=== PATIENT | female | born 1935 | race Caucasian/White ===

== ENCOUNTER 2016-10-21 14:07 | Inpatient (IN) | payer OTHER ==
[~2016-10-21] VITALS: Ht 165.1 cm; Wt 74.8 kg
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
[2016-10-21] MEDS ORDERED: LISINOPRIL10 M1 PO (15:17)
[2016-10-21] MEDS ORDERED: OXYBUTYNIN CHLOR5 M2 PO (15:17)
[2016-10-21] MEDS ORDERED: LORAZEPAM0.5 M1 PO (15:18)
[2016-10-21] MEDS ORDERED: VICODIN 5-3001 EACH PO (15:18)
[2016-10-21 15:50] LABS: ABSOLUTE BASOPHIL COUNT 0.1 /CUMM (0.0-0.2); ABSOLUTE EOSINOPHIL COUNT 0 /CUMM (0.0-0.7); ABSOLUTE GRANULOCYTE CT 16.9 /CUMM (1.4-6.5); ABSOLUTE LYMPH COUNT 0.9 /CUMM (1.2-3.4); ABSOLUTE MONOCYTE COUNT 1.1 /CUMM (0.10-0.60); BASOPHIL % 0.4 % (0.0-2.0); EOSINOPHIL % 0.1 % (0-5); HEMATOCRIT 42.7 % (37-47); MEAN CORPUSCULAR HGB 30.4 PG (27.0-31.0); MEAN CORPUSCULAR HGB CONC 33.1 G/DL (33.0-37.0); MEAN CORPUSCULAR VOLUME 91.8 FL (81.0-99.0); MEAN PLATELET VOLUME 9.6 FL (7.4-10.4); PLATELET COUNT 234 /CUMM (130-400); RBC DISTRIBUTION WIDTH 14.7 % (11.5-14.5); RED BLOOD CELL CT 4.65 /CUMM (4.20-5.40); WHITE BLOOD CELL COUNT 19.1 /CUMM (4.8-10.8)
--- NOTE | 2016-10-21 15:53 | RADIOLOGY REPORT ---
EXAMINATION: XR HIP, RIGHT CLINICAL INFORMATION: Right hip pain after fall. Evaluate for fracture. COMPARISON: None TECHNIQUE: Pelvis, AP view Right hip, 2 views FINDINGS: There are moderately displaced, comminuted fractures of the right superior and inferior pubic rami. Otherwise, the pelvic bones are intact. Bones have normal alignment at the pubic symphysis, hips and sacroiliac joints. The articular cartilage space of each hip is maintained. No evidence of femoral fracture or acetabular injury. IMPRESSION: Acute, moderately displaced fractures of the right pubic rami.
[2016-10-21 15:58] LABS: GRANULOCYTE % 88.7 % (42.2-75.2)
--- NOTE | 2016-10-21 17:16 | History & Physical ---
SAM OROZCO,[facility] 10/21/16 1716: General Information and HPI MD Statement: I have seen and personally examined RAN CASSIDY and documented this H&P. The patient is a 80 year old F who presented with a patient stated chief complaint of [Fall with severe left hip pain]. Source of Information: patient Exam Limitations: no limitations History of Present Illness: Ms. cassidy is 80 year old female with past medical history of hypertension, left tibia plate fracture status post internal fixation 4 years ago, right distal tibial fracture status post external fixation 17 years ago both incidents after falls while skiing, chronic back pain. [place] when she fell down on her right hip, she immediately noticed severe pain over her right hip, patient went to home and started to have lightheadedness because of the severe pain but never lost consciousness. She denied any chest pain, palpitation, diaphoresis, nausea or vomiting, headache, diaphoresis, shortness of breath. When the patient came to the ED and after checking in, she started to feel palpitation and on EKG atrial fibrillation was recorded. Patient denied having any similar episode of palpitation before. Denied any recent history of flulike symptoms. Patient denied abdominal pain, nausea vomiting, change in the bowel habits, urinary symptoms, fever or chills. 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 self Primary Language: Moroccan Smoking Status: Never Smoked ETOH Use: denies use Illicit Drug Use: denies illicit drug use Review of Systems Review of Systems Constitutional: Reports: see HPI. Exam & Diagnostic Data Last 24 Hrs of Vital Signs/I&O Vital Signs Date Time Temp Pulse Resp B/P Pulse O2 O2 Flow FiO2 Ox Delivery Rate 10/21 2025 98.1 81 18 162/78 93 10/21 2001 98.0 82 18 145/69 96 10/21 1905 98.4 85 20 154/67 95 Room Air 10/21 1751 97.5 93 20 188/75 97 Room Air 10/21 1500 Room Air Room Air 10/21 1427 96.3 153 18 177/87 96 Room Air Intake & Output 10/21 1600 10/21 0800 10/21 0000 Intake Total Output Total Balance Patient 74.843 kg Weight Physical Exam General Appearance Alert, Oriented X3, Cooperative, No Acute Distress Skin No Rashes, No Breakdown, No Significant Lesion HEENT Atraumatic, PERRLA, EOMI, Mucous Membr. moist/pink Neck Supple Cardiovascular Regular Rate, Normal S1, Normal S2, No Murmurs Lungs Clear to Auscultation, Normal Air Movement Abdomen Normal Bowel Sounds, Soft, No Tenderness Neurological Normal Speech, Strength at 5/5 X4 Ext, Normal Tone, Sensation Intact, Cranial Nerves 3-12 NL, Reflexes 2+ Extremities No Clubbing, No Cyanosis, No Edema, Normal Pulses Assessment/Plan Assessment: Ms. cassidy is 80 year old female with chief complaint of right hip pain after fall this morning. She has past medical history of hypertension, left tibia plate fracture status post internal fixation 4 years ago, right distal tibial fracture status post external fixation 17 years ago both incidents after falls while skiing, chronic back pain. On admission Vital signs Temperature 98.1, pulse 81, respiration 18 with saturation 93% on room air, blood pressure 162/78 Labs WBC 19.1, H&H 14.1/42.7, platelet 234, sodium 138, potassium 3.8, chloride 101, bicarbonate 27, BUN 17, creatinine 0.8, troponin less than 0.01, LFT within normal, coagulation profile is within normal Right hip x-ray FINDINGS: There are moderately displaced, comminuted fractures of the right superior and inferior pubic rami. Otherwise, the pelvic bones are intact. Bones have normal alignment at the pubic symphysis, hips and sacroiliac joints. The articular cartilage space of each hip is maintained. No evidence of femoral fracture or acetabular injury. IMPRESSION: Acute, moderately displaced fractures of the right pubic rami. Problem list #Moderate displaced comminuted fracture of right superior and inferior pubic rami #New onset of paroxysmal atrial fibrillation #Hypertension #Moderate displaced comminuted fracture of right superior and inferior pubic rami -Orthopedic evaluation -Patient's last meal was at 1:30 PM -Pain improved with pain medication -Distal pulsation is palpable, no skin discoloration, no numbness, motor 5 out of 5 -Patient multiple falls while skiing with multiple fracture -History of osteopenia -Continue vitamin D supplementation 2000 units daily -Calcium is within normal 9.5 -Obtain vitamin D level -Obtain PTH, TSH, free T4 level #New onset of paroxysmal atrial fibrillation -Patient had been episode of A. fib when presented to the ED with heart rate 146 -Initial ED EKG: ATRIAL FIBRILLATION 146 [address] WITH [address]IFIC st-t WAVE CHANGES. -Repeat EKG: normal sinus rhythm ( 150 BPM, VARIABLE), atrial fibrillation -Converted to sinus rhythm with rate of 80s -Start aspirin 80 mg daiy -Start Lovenox for DVT anticoagulation #Hypertension -Initial troponin is negative -Follow up troponin and EKG -Echocardiogram -Start aspirin 81 mg daily -Continue lisinopril 10 mg daily -Obtain lipid profile DVT prophylaxis Lovenox Diet regular Code full Consultation cardiology, orthopedic surgery As Ranked By This Provider Problem List: 1. Pelvic fracture 2. Afib Core Measures/Miscellaneous Acute Coronary Syndrome ACS Diagnosis: No Cerebrovascular Accident CVA/TIA Diagnosis: No Congestive Heart Failure CHF Diagnosis: No Venous Thromboembolism VTE Risk Factors: Age > 40 VTE Prophylaxis Ordered Inpt: Pharm- Lovenox No Mech VTE prophylaxis d/t: No contraindications No VTE Pharm Prophylaxis d/t: No contraindications VTE Diagnosis: No VTE Type: NONE VTE Confirmed by (Test): NONE Severe Sepsis Severe Sepsis Present: No Septic Shock Septic Shock Present: No Miscellaneous Documentation Attending Case Discussed With: TINO OROZCO,CLAUS Carrillo Primary Care Physician: ARNIE PARRA MD Patient sees these Specialists Primary care physician Level of Patient Care: Telemetry ANJELICA QUINN 10/21/16 1736: Resident Review Statement Resident Statement: examined this patient, discussed with internal grinder, agreed with internal grinder, discussed with family, reviewed EMR data (avail) Other Findings: is an 80 yo athletic 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 Patient was [place] today [place] when she slipped and fell and hit her buttock on the snow result in very severe pain about 20/10, she denies any other trauma, denies loss of consciousness, she had a friend help who drove her to home, she couldn't weight-bear without help. At home she started to feel lightheaded, with persistent progressively worsening pain, she decided to come to emergency department for more evaluation, at emergency department she started to feel heart tracing without chest pain. She denies previous history of heart racing/palpitations. She denies any chronic CHADSVASC SCORE IS 4 Assessment: 1-Displaced fractures of the right pubic rami 2-New onset A.fib currently switched to SR 3-Hx. of HTN Plan: Will admitt the patient to telemetry floor Case was discussed with Alfred Daugherty MD, for now there is not too much to be done, he is cannot look at the patient tomorrow, there is no need to keep the patient nothing by mouth, PT evaluation will be appropriate tomorrow to see how much patient can ambulate Case was also discussed with Dr. Whiting, who recommend to obtain echocardiogram and check TSH and free T4 will obtain cardiology consult Will continue home meds Pain management with Morphine Will trend troponin and EKG Will order PTT, INR Will keep the patient NPO for now pending Ortho. evaluation dvt prophylaxis SC lovenox Full code ELAINA OROZCO, [facility] 10/21/16 1850: Attending MD Review Statement Attending Statement Attending MD Statement: examined this patient, discuss w/resident/PA/BAGEL MAKER, agreed w/resident/PA/BAGEL MAKER Attending Assessment/Plan: 80 yo pretty active F with h/o HTN, overactive bladder, spinal stenosis, osteopenia is here for evaluation of right groin and buttock pain after sustaining a fall to the right hip while skiing today. She was helped by the skidder and was driven back home by her friend. However, she had immense pain with inability to bear weight to right leg and hence came to the ER. She reports lightheadedness in the setting of severe pain. While in the ER, she developed sudden onset palpitations, EKG done showed Afib with HR in 140-150's. She denies chest pain, nausea, diaphoresis or dyspnea. She does not have a h/o atrial fibrillation or flutter. She has had an Echo few years back as suggested by the PA at her PCP's office for a 'murmur'. But she does not know the results and did not have to see a drafter (cad) electronic. No h/o [place]. She has sustained multiple injuries (including tibial fracture, hip bursitis, toe nail injury, shoulder OA) as she plays tennis and goes skiing often. VSS. Exam: AAO, in a jovial mood, writhes in pain only on movement. Chest b/l clear, Heart S1S2 regular, systolic murmur+, Right groin tenderness+, no obvious bruise. LE no edema, peripheral pulses well felt. Labs: WBC 19.1, INR 1.02, glucose 127, trop neg. Hip Xray shows acute, moderately displaced fractures of the right pubic rami. EKG (2.40 pm): Afib with RVR, (3.20 pm) Sinus rhythm. 1. Mechanical fall with resultant pubic rami fracture. Fall precautions, check vit D and B12 levels. Pain management with Percocet and IV morphine as needed. Ortho consult. PT eval and eventual placement. Please give bedside incentive spirometry to prevent atelectasis. 2. Paroxysmal Afib. Patient converted to SR while in the ER, episode last for < 60 minutes. Monitor on Tele for arrhythmias, serial EKG and troponin to rule out ACS, obtain Echo, check TSH, free T4 and magnesium levels. Keep K > 4.0 amd Mag > 2.0. Obtain Cardio consult. Patient's [id number] score is 4 (HTN 1, female for now. 3. Leukocytosis likely reactive. Gentle hydration, monitor CBC. If persistently elevated, will consider UA and CXR. No focal symptoms as of now. 4. HTN. Continue lisinopril 10 BID. 5. Overactive bladder. Continue oxybutinin. 6. Impaired random glucose. Check HbA1c. DVT ppx Lovenox. Full code.
[2016-10-21 18:28] LABS: PT 10.7 SEC (9.4-12.5); PTT 28 SEC (25-37)
--- NOTE | 2016-10-21 19:30 | Admission Certification ---
Admission Certification Certification Statement - As attending physician, I certify that at the time of - admission, based on clinical presentation, severity of - symptoms, need for further diagnostic testing and - therapeutic interventions, and risk of adverse outcomes - without in-hospital treatment, in my clinical assessment, - this patient requires an acute hospital stay for a minimum - of two nights or longer. I have also considered psychsocial - factors such as support system, advanced age, financial - issues, cognitive issues, and failed out-patient treatments, - past re-admission history, safety of patient, and lack of - compliance as applicable. Specific rationale supporting this admission is: Mechanical fall resulting in pubic rami fracture. Paroxysmal atrial fibrillation.
[2016-10-21 20:26] VITALS: BP 162/78
[2016-10-22 00:06] VITALS: BP 120/50
--- NOTE | 2016-10-22 07:33 | PN- Housestaff ---
SAM OROZCO,[facility] 10/22/16 0733: Subjective Follow-up For: Pubic ramus fracture status post mechanical fall. Newly diagnosed paroxysmal atrial fibrillation Anemia. Hypertension Tele-Events Since Last Visit: Sinus rhythm, heart rate 75-84 No overnight events Subjective: Patient was seen and examined this morning, she denied any pain while she is resting on the bed, the pain may go up to 2 out of 10 when she moves around although she hasn't been out of bed since admission, she used the bedban for which she needed to move a little bit. She denied any chest pain, palpitation, shortness of breath, dizziness or lightheadedness, diaphoresis, headache, visual disturbances, weakness or numbness. She denied abdominal pain, nausea or vomiting, had bowel movement yesterday. No urinary symptoms. Reported chronic back pain 5/10 from prolonged sitting. Vital signs blood pressure 158/60, pulse 87 Review of Systems Constitutional: Reports: see HPI. Objective Last 24 Hrs of Vital Signs/I&O Vital Signs Date Time Temp Pulse Resp B/P Pulse O2 O2 Flow FiO2 Ox Delivery Rate 10/22 0943 87 158/60 10/22 08 98.0 87 20 158/60 95 Room Air 10/22 0006 98.2 78 20 120/50 95 Room Air 10/21 2153 Room Air Room Air 10/21 2123 82 162/80 10/21 202 98.1 81 18 162/78 93 / 2002 98.0 82 18 145/69 96 10/21 1905 98.4 85 20 154/67 95 Room Air 10/21 1751 97.5 93 20 188/75 97 Room Air 10/21 1500 Room Air Room Air 10/21 1427 96.3 153 18 177/87 96 Room Air Intake & Output 10/22 1600 10/22 0800 10/22 0000 Intake Total 525 420 Output Total 550 350 Balance -25 70 Intake, IV 525 Intake, Oral 0 420 Output, Urine 550 350 Patient 74.843 kg Weight Physical Exam General Appearance: Alert, Oriented X3, Cooperative, No Acute Distress Skin: small faint 5x5 cm bruse over the right hip area, no bruse over the bottoks HEENT: Atraumatic, PERRLA, EOMI, Mucous Membr. moist/pink Neck: Supple Cardiovascular: Regular Rate, Normal S1, Normal S2, No Murmurs Lungs: Clear to Auscultation, Normal Air Movement Abdomen: Normal Bowel Sounds, Soft, No Tenderness Neurological: Normal Speech, Strength at 5/5 X4 Ext, Normal Tone, Sensation Intact, Cranial Nerves 3-12 NL, Reflexes 2+ Extremities: No Clubbing, No Cyanosis, No Edema, Normal Pulses Vascular: Normal Pulses Assessment/Plan Assessment: Ms. mattson is 80 year old female with chief complaint of right hip pain after fall this morning. She has past medical history of hypertension, left tibia plate fracture status post internal fixation 4 years ago, right distal tibial fracture status post external fixation 17 years ago both incidents after falls while skiing, chronic back pain. Right hip x-ray FINDINGS: There are moderately displaced, comminuted fractures of the right superior and inferior pubic rami. Otherwise, the pelvic bones are intact. Bones have normal alignment at the pubic symphysis, hips and sacroiliac joints. The articular cartilage space of each hip is maintained. No evidence of femoral fracture or acetabular injury. IMPRESSION: Acute, moderately displaced fractures of the right pubic rami. Problem list #Moderate displaced comminuted fracture of right superior and inferior pubic rami #New onset of paroxysmal atrial fibrillation #Hypertension #Anemia #Moderate displaced comminuted fracture of right superior and inferior pubic rami -Orthopedic was obtained, verbally they don't think patient need any intervention -Pain is well controlled -Severe pain pathway, Tylanolo 50 mg every 6 when necessary, Percocet 1 tablet every 6 when necessary, morphine IV 2 mg every 4 when necessary -Aggressive bowel regimen -Continue vitamin D supplementation 2000 units daily -Calcium is within normal 9.5 -TSH, free T4 level pending #New onset of paroxysmal atrial fibrillation -Patient had been episode of A. fib when presented to the ED with heart rate 146 -Initial ED EKG: ATRIAL FIBRILLATION [address]IFIC [address]-t WAVE CHANGES. -Repeat EKG: normal sinus rhythm ( 150 BPM, VARIABLE), atrial fibrillation -Converted to sinus rhythm with rate of 80s -Overnight patient continue to be on sinus rhythm with heart rate 75-84 - [id number] score is 4 -Continue aspirin 81 mg daiy -Start Sotolol at 80mg po BID -Monitor on telemetry for 24 hours -Patient is not a candidate for chronic anticoagulation per cardiology -Echocardiogram pending #Hypertension -Continue lisinopril 10 mg daily #Anemia -A drop in H&H was noted today -H&H 11.3/33.3 < 14.1/42.7 -We'll repeat the H&H this evening, DC IV fluid -Consider CT pelvis and hip if the H&H is low to rule out hematoma -Patient has a very small and faint bruise over the right hip 5 x 5 cm -Guiac stool DVT prophylaxis Lovenox Diet regular Code full Consultation cardiology, orthopedic surgery Problem List: 1. Pelvic fracture 2. Afib Pain Ratin Pain Location: Right hip pain Pain Goal: Pain 4 or less Pain Plan: Tylanolo 50 mg every 6 when necessary, Percocet 1 tablet every 6 when necessary, morphine IV 2 mg every 4 when necessary Tomorrow's Labs & Rationales: CBc, CMP ALEXANDRA OROZCO,[facility] 10/22/16 1030: Attending MD Review Statement Attending Statement Attending MD Statement: examined this patient, discuss w/resident/PA/GROUT MACHINE OPERATOR, agreed w/resident/PA/GROUT MACHINE OPERATOR, reviewed EMR data (avail), discussed with nursing, discussed with case mgmt, amended to note Attending Assessment/Plan: Patient seen and examined. Resting comfortably limits in any acute distress. Denies chest pain or palpitations. Reports that he pain is controlled at rest but aggravated with movement. Admits to pain relief with analgesics. She denies any history of palpitations prior to the episode in the emergency room. She is very eager to go home. Examination lungs are clear bilaterally. Heart sounds are regular. She has no audible normal. She has no peripheral edema. She remains in sinus rhythm on telemetry. Problems: 1. Pubic ramus fracture status post mechanical fall. 2. Newly diagnosed paroxysmal atrial fibrillation 3. Anemia. 4. Hypertension Recommendations: -No surgical intervention recommended at present. Continue current analgesic regimen. Physical therapy as tolerated. Follow-up on recommendations from the orthopedic service. -Her blood pressure has been elevated since admission probably secondary to pain. We'll continue to monitor and adjust medications as needed.- -She is currently in sinus rhythm. She would likely benefit from a beta shabana /calcium channel shabana for blood pressure control and also rate control if she converts to A. fib again in the future. We'll follow-up with the cardiology service. She does have an elevated [id number] score of 4 even prior to her echocardiogram. Will discuss anticoagulation options with the cardiology service. She doesn't appear to have had any prior episode of atrial fibrillation. Follow-up her echocardiogram. -Her anemia may be dilutional due to fluid as also lines dropped including her admission leukocytosis as well as her platelet count. Discontinue IV fluids. Repeat H&H this afternoon and in the morning. Check stool guaiac. If no evidence of active bleeding no further workup indicated. If her hemoglobin level continues to trend downwards recommend CT abdomen and pelvis to rule out internal bleeding.
[2016-10-22 07:43] LABS: ABSOLUTE BASOPHIL COUNT 0 /CUMM (0.0-0.2); ABSOLUTE EOSINOPHIL COUNT 0.1 /CUMM (0.0-0.7); ABSOLUTE GRANULOCYTE CT 4.4 /CUMM (1.4-6.5); ABSOLUTE LYMPH COUNT 1.1 /CUMM (1.2-3.4); ABSOLUTE MONOCYTE COUNT 0.7 /CUMM (0.10-0.60); BASOPHIL % 0.4 % (0.0-2.0); GRANULOCYTE % 68.6 % (42.2-75.2); MEAN CORPUSCULAR HGB 30.8 PG (27.0-31.0); MEAN CORPUSCULAR HGB CONC 33.8 G/DL (33.0-37.0); MEAN CORPUSCULAR VOLUME 90.9 FL (81.0-99.0); MEAN PLATELET VOLUME 9.3 FL (7.4-10.4); PLATELET COUNT 192 /CUMM (130-400); RBC DISTRIBUTION WIDTH 14.7 % (11.5-14.5); RED BLOOD CELL CT 3.67 /CUMM (4.20-5.40)
[2016-10-22 07:44] LABS: WHITE BLOOD CELL COUNT 6.5 /CUMM (4.8-10.8)
[2016-10-22 07:45] LABS: HEMATOCRIT 33.3 % (37-47)
[2016-10-22 08:00] VITALS: BP 158/60
--- NOTE | 2016-10-22 15:03 | Cons- Cardiology ---
General Information and HPI Consulting Request Date of Consult: 10/22/16 Requested By: JACKSON MORRIS M.D History of Present Illness: Ms. Estrella is an 80 year old female with history of hypertension who presented to [facility] after for right leg discomfort that began after a fall that occured while skiing in the [facility]. She did have lightheadedness at that time as well as severe right hip pain but opted to wait until she came home to go to the hospital. While in the waiting room, this patient noted that her heart was racing. In the ER she was confirmed to be in atrial fibrillation with increased heart rate. This spontaneously broke back into a sinus rhythm. A right pubic rami fracture was also found. At baseline, this patient is vigorously active. She denies any chest discomfort, shortness of breath or lightheadedness and has not noted any prior palpitations. She was discovered to have a heart murmur by her PCP several months ago. Allergies/Medications Allergies: Coded Allergies: No Known Allergies (10/21/16) Home Med List: Lisinopril 10 MG TABLET 1 TAB PO BID B/P (Reported) Lorazepam 0.5 MG TABLET 1 TAB PO QPM PRN INSOMNIA (Reported) Oxybutynin Chloride 5 MG TABLET 1 TAB PO BID BLADDER (Reported) Review of Systems Review of Systems: A twelve point review of systems is unremarkable. 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 No premature CAD. Psychosocial History Where Do You Live? Home Who Do You Live With? self Primary Language: Wolof Smoking Status: Never Smoked ETOH Use: occasional use Illicit Drug Use: denies illicit drug use Exam & Diagnostic Data Vital Signs and I&O Vital Signs Date Time Temp Pulse Resp B/P Pulse O2 O2 Flow FiO2 Ox Delivery Rate 10/22 0943 87 158/60 10/22 0800 98.0 87 20 158/60 95 Room Air 10/22 0006 98.2 78 20 120/50 95 Room Air 02/06 2153 Room Air Room Air 10/21 2122 82 162/80 10/21 2025 98.1 81 18 162/78 93 10/21 2001 98.0 82 18 145/69 96 10/21 1905 98.4 85 20 154/67 95 Room Air 10/21 1751 97.5 93 20 188/75 97 Room Air 10/21 1500 Room Air Room Air Intake & Output 10/22 1600 10/22 0800 10/22 0000 10/21 1600 10/21 0800 10/21 0000 Intake Total 855 525 420 Output Total 200 550 350 Balance 655 -25 70 Intake, IV 375 525 Intake, Oral 480 0 420 Output, Urine 200 550 350 Patient 165 lb 165 lb Weight Physical Exam: General: WD/ WN female in NAD; alert and oriented x 3 HEENT: NC/ AT, PERRL, EOMI Neck: no JVD, no carotid bruit Heart: RRR with 2/6 systolic murmur at the RUSB Lungs: clear bilaterally Abdomen: soft, NT, +ve bowel sounds Extremities: no edema Diagnostic Data EKG Results atrial fibrillation with ischemia ST depressions Assessment/Plan Assessment/Plan * This patient has a documented episode of atrial fibrillation with increased heart rate. She fortunately converted spontaneously back into a sinus rhythm. In consideration of her combination of hypertension and valvular disease I suspect that she has had other episodes of atrial fibrillation that may not have been documented. In any case, these conditions are known to be a typical setting for atrial fibrillation. I recommend obtaining an echocardiogram and checking a TSH and free T4. * This patient has a borderline CHADS score but only has one documented episode of atrial fibrillation. In addition, she has a fresh fracture and is likely going to continue engaging in risky activity that may lead to falling. I would avoid chronic anticoagulation in favor of aspirin 81mg daily. * In order to maintain a sinus rhythm and avoid the need for chronic anticoagulation, and to better control her BP, I would begin Sotolol at 80mg po BID. Monitor on telemetry for 24 hours on this medication to ensure that her heart rate and blood pressue are well controlled. This medication is cleared by the kidneys so she will need to have her renal function followed on a regular basis. It is currently normal. Consult Acknowledgment - Thank you for your consult request.
[2016-10-22 15:30] VITALS: BP 117/51
[2016-10-22 17:48] LABS: ABSOLUTE BASOPHIL COUNT 0 /CUMM (0.0-0.2); ABSOLUTE EOSINOPHIL COUNT 0.3 /CUMM (0.0-0.7); ABSOLUTE GRANULOCYTE CT 3.7 /CUMM (1.4-6.5); ABSOLUTE MONOCYTE COUNT 0.7 /CUMM (0.10-0.60); BASOPHIL % 0.6 % (0.0-2.0); EOSINOPHIL % 3.8 % (0-5); GRANULOCYTE % 55.6 % (42.2-75.2); HEMATOCRIT 33.3 % (37-47); MEAN CORPUSCULAR HGB CONC 34.1 G/DL (33.0-37.0); MEAN CORPUSCULAR VOLUME 90.9 FL (81.0-99.0); MEAN PLATELET VOLUME 9.3 FL (7.4-10.4); PLATELET COUNT 185 /CUMM (130-400); RBC DISTRIBUTION WIDTH 14.8 % (11.5-14.5); RED BLOOD CELL CT 3.66 /CUMM (4.20-5.40); WHITE BLOOD CELL COUNT 6.7 /CUMM (4.8-10.8)
[2016-10-23 00:02] VITALS: BP 176/84
[2016-10-23 08:00] VITALS: BP 150/70
[2016-10-23 08:05] LABS: ABSOLUTE BASOPHIL COUNT 0 /CUMM (0.0-0.2); ABSOLUTE EOSINOPHIL COUNT 0.2 /CUMM (0.0-0.7); ABSOLUTE GRANULOCYTE CT 3.1 /CUMM (1.4-6.5); ABSOLUTE LYMPH COUNT 1.6 /CUMM (1.2-3.4); ABSOLUTE MONOCYTE COUNT 0.6 /CUMM (0.10-0.60); BASOPHIL % 0.6 % (0.0-2.0); EOSINOPHIL % 4.5 % (0-5); HEMATOCRIT 30.9 % (37-47); MEAN CORPUSCULAR HGB 30.8 PG (27.0-31.0); MEAN CORPUSCULAR VOLUME 90.6 FL (81.0-99.0); MEAN PLATELET VOLUME 9.5 FL (7.4-10.4); PLATELET COUNT 164 /CUMM (130-400); RBC DISTRIBUTION WIDTH 14.8 % (11.5-14.5); RED BLOOD CELL CT 3.42 /CUMM (4.20-5.40); WHITE BLOOD CELL COUNT 5.6 /CUMM (4.8-10.8)
--- NOTE | 2016-10-23 08:30 | PN- Housestaff ---
SAM OROZCO,[facility] 10/23/16 0830: Subjective Follow-up For: Pubic ramus fracture status post mechanical fall Newly diagnosed paroxysmal atrial fibrillation Anemia Hypertension Tele-Events Since Last Visit: Sinus rhythm with heart rate 60s Subjective: Patient was seen and examined this morning, vital signs blood pressure 150/70, overnight was 176/80, pulse 78 sinus rhythm, distal vital signs are stable. Patient denied any right hip pain on rest, 4 out of 10 on ambulation respond to medication. Patient denied any chest pain, palpitation, shortness of breath. Patient didn't have any bowel movement since admission, received MiraLAX and senna yesterday. Review of Systems Constitutional: Reports: see HPI. Hematologic/Endocrine: Denies: bleeding. Objective Last 24 Hrs of Vital Signs/I&O Vital Signs Date Time Temp Pulse Resp B/P Pulse O2 O2 Flow FiO2 Ox Delivery Rate 10/23 1429 80 126/50 10/23 1016 150/70 10/23 0800 98.2 78 18 150/70 98 Room Air 10/23 0002 97.5 87 12 176/84 96 Room Air 10/22 2118 74 144/68 Intake & Output 10/23 1600 08 0800 10/23 0000 Intake Total 720 100 640 Output Total Balance 720 100 640 Intake, Oral 720 100 640 Physical Exam General Appearance: Alert, Oriented X3, Cooperative, No Acute Distress Skin: Right hip bruse 6x8 cm, not tender HEENT: Atraumatic, PERRLA, EOMI, Mucous Membr. moist/pink Neck: Supple, No JVD Cardiovascular: Regular Rate, Normal S1, Normal S2, No Murmurs Lungs: Clear to Auscultation, Normal Air Movement Abdomen: Normal Bowel Sounds, Soft, No Tenderness Neurological: Normal Gait, Normal Speech, Strength at 5/5 X4 Ext, Normal Tone, Sensation Intact, Cranial Nerves 3-12 NL, Reflexes 2+ Extremities: No Clubbing, No Cyanosis, No Edema, Normal Pulses Vascular: Normal Pulses, Pulses Symmetrical Assessment/Plan Assessment: Ms. mattson is 80 year old female with chief complaint of right hip pain after fall this morning. She has past medical history of hypertension, left tibia plate fracture status post internal fixation 4 years ago, right distal tibial fracture status post external fixation 17 years ago both incidents after falls while skiing, chronic back pain. Right hip x-ray FINDINGS: There are moderately displaced, comminuted fractures of the right superior and inferior pubic rami. Otherwise, the pelvic bones are intact. Bones have normal alignment at the pubic symphysis, hips and sacroiliac joints. The articular cartilage space of each hip is maintained. No evidence of femoral fracture or acetabular injury. IMPRESSION: Acute, moderately displaced fractures of the right pubic rami. Problem list #Moderate displaced comminuted fracture of right superior and inferior pubic rami #New onset of paroxysmal atrial fibrillation #Hypertension #Anemia #Moderate displaced comminuted fracture of right superior and inferior pubic rami -Orthopedic was obtained, verbally they don't think patient need any intervention -Orthopedic surgeon Dr. Alfred Daugehrty MD, was called today for evaluation -Pain is well controlled -Severe pain pathway, Tylanolo 50 mg every 6 when necessary, Percocet 1 tablet every 6 when necessary, morphine IV 2 mg every 4 when necessary -Aggressive bowel regimen -Continue vitamin D supplementation 2000 units daily -Calcium is within normal 9.5 -TSH elevated 5.6, free T4 1.16 within normal, euthyroid sick syndrome, patient needs to follow up within 2 months #New onset of paroxysmal atrial fibrillation -Patient had been episode of A. fib when presented to the ED with heart rate 146 -Initial ED EKG: ATRIAL FIBRILLATION [address] WITH [address]IFIC st-t WAVE CHANGES. -Repeat EKG: normal sinus rhythm ( 150 BPM, VARIABLE), atrial fibrillation -Converted to sinus rhythm with rate of 80s -Patient continue to be on sinus rhythm with heart rate 75-84 - [id number] score is 4 -Discontinue aspirin 81 mg daiy, given drop in hemoglobin -Start Sotolol at 80mg po BID (patient refused taking this medication and wants to get second opinion, patient was provided with information about sotalol and the market babb) -Patient is not a candidate for chronic anticoagulation per cardiology -Echocardiogram Normal size left ventricle with mild concentric left ventricular hypertrophy, no obvious regional wall motion abnormalities, and normal systolic function with an estimated ejection fraction of greater than 65%. Abnormal relaxation filling pattern of the left ventricle for age (stage 1 diastolic dysfunction). Normal right ventricular size and function. Normal atrial size. Mild tricuspid regurgitation. No evidence of pulmonary hypertension. Trace pulmonic regurgitation. #Hypertension -Continue lisinopril 10 mg daily #Anemia -A drop in H&H was noted yesterday, H&H dropped farther today -H&H 10.5/30.9<11.3/33.3 < 14.1/42.7 -CT pelvis and abdomen was negative for any hematoma IMPRESSION: 1. Fractures of right pubic rami with adjacent soft tissue swelling and minimal hemorrhage. However, there is no discrete, measurable hematoma. No evidence of a significant posttraumatic bleed. 2. Diverticulosis of sigmoid colon without diverticulitis. -Patient has bruise over the right hip 6 x 8 cm, no other bruises were noticed -Guiac stool, patient still doesn't have any bowel movement -Orthostatic measurements blood pressure lying 126/50, pulse 80 Blood pressure sitting 140/70, pulse 83 Blood pressure standing 148/70, pulse 88 Orthostatic measurement is negative We had a long conversation with the patient regarding her discharge, she insists to be discharged today, we explained to her that given the condition of her hemoglobin if the hemoglobin continued to drop, repeated CBC at 4 PM today, the patient will not be discharged and will need further investigation for the source of bleeding, if the hemoglobin is the same the patient will be discharged and will follow up with her primary care physician tomorrow if possible. Dr. Chamorro contacted the patient's primary care physician and clarified the hemoglobin baseline which was 13, the plan is if patient will be discharged today, she will follow with primary care physician in the next day to follow on her hemoglobin level. The patient agreed to the plan. We'll continue to follow. DVT prophylaxis discontinue Lovenoxm, even drop in hemoglobin. Alps Diet regular Code full Consultation cardiology, orthopedic surgery Problem List: 1. Pelvic fracture 2. Afib Pain Ratin Pain Location: right hip pain Pain Goal: Pain 4 or less Pain Plan: severe pain pathway Tomorrow's Labs & Rationales: CBC, CMP ALEXANDRA OROZCO,[facility] 10/23/16 1124: Attending MD Review Statement Attending Statement Attending MD Statement: examined this patient, discuss w/resident/PA/CAPTURE MANAGER, agreed w/resident/PA/CAPTURE MANAGER, reviewed EMR data (avail), discussed with nursing, discussed with case mgmt, amended to note Attending Assessment/Plan: Patient seen and examined. Resting comfortably and not in acute distress. She remains in normal sinus rhythm. She continues to deny chest pain or palpitations.-Hemoglobin level trended down to 10.5 this morning from 11.3 yesterday. I did speak with the INSPECTOR PENETRANT Shasha Simon follows the patient in the outpatient setting. Patient baseline hemoglobin/hematocrit level in July 2016 was 13.9/41.3. CT abdomen and pelvis was done this morning that showed the right pubic rami fracture with adjacent soft tissue swelling and minimal hemorrhage. No discrete or measurable hematoma was noted on the CT scan. On physical examination however she does have an 8 x 6 cm ecchymotic area likely corresponding to hematoma on the lateral aspect of the upper third of the right thigh. I was unable to palpate any deep collection. Examination her lungs are clear bilaterally. She has no chest wall or lower back tenderness. She is yet bowel movements so stool guaiac is yet to be done. Sotalol was recommended yesterday by the cardiology service however patient declined this stating she wanted a second opinion. She insists on Rocephin this medication until she discusses with her primary care provider. I did discuss this with her primary care service and they'll willing to refer the patient to a supervisor framing mill for evaluation as an outpatient. Her TSH is elevated however her free T3 is within normal limits. 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 Recommendations: -Repeat hemoglobin level this afternoon. If her H&H continues to trend downwards recommend evaluation by the surgical service and continue monitoring in the hospital. Patient is in agreement with this. -If her H&H is stable, patient is very eager to be discharged home today. Her primary care service has arranged for outpatient testing at [facility]. Unfortunately they will likely be is some tomorrow. Patient is adamant on leaving the hospital today if she can. Her lab will be repeated on Friday. -Patient will be referred to cardiology service as primary care provider for further evaluation of management of paroxysmal atrial fibrillation. Cardiology service is currently not recommending long-term anticoagulation with Coumadin due to her high fall risk as patient wishes to continue in high risk activities. I'm recommending holding aspirin for now due to her trauma and bleed. DVT prophylaxis with bilateral compression devices and frequent mobilization only.
--- NOTE | 2016-10-23 08:36 | CT SCAN REPORT ---
EXAMINATION: CT ABDOMEN AND PELVIS WITHOUT CONTRAST CLINICAL INFORMATION: 80-year-old female with pubic rami fractures. Evaluate for hematoma. Decreased hemoglobin level. COMPARISON: Radiographs of the pelvis/hip from 10/21/2016 TECHNIQUE: Multidetector volumetric imaging was performed from the superior aspect of the liver through the pubic symphysis. Sagittal and coronal reformatted images were obtained on the technologist's workstation. DLP: 451 mGy-cm FINDINGS: LUNG BASES: Minimal atelectasis within lower lobes. Mitral valve annulus is calcified. There is atherosclerotic calcification of the visualized distal thoracic aorta. LIVER, GALLBLADDER, AND BILIARY TREE: Liver has normal size, contour and attenuation. No focal hepatic lesion or intrahepatic bile duct dilatation. Gallbladder is unremarkable. PANCREAS: Unremarkable. SPLEEN: Unremarkable. ADRENAL GLANDS: Unremarkable. KIDNEYS AND URETERS: The kidneys are normal in size, shape, and attenuation. No hydronephrosis, hydroureter, or calculi seen. No perinephric stranding. BLADDER: Unremarkable. GASTROINTESTINAL TRACT: There is a very small sliding-type hiatal hernia. Bowel loops are normal in caliber. Appendix is normal. No evidence of acute inflammation or obstruction along the gastrointestinal tract. Diverticulosis of sigmoid colon without diverticulitis. No hemoperitoneum. ABDOMINAL WALL: Small area of subcutaneous gas in the left abdominal wall is likely related to recent medication injection. No abdominal wall hematoma. LYMPH NODES: No pathologic sized lymph nodes within the abdomen or pelvis. VASCULAR: Atherosclerotic calcification of the abdominal aorta and iliac arteries without aneurysm. No retroperitoneal hematoma. PELVIC VISCERA: Uterus and adnexa are unremarkable. OSSEOUS STRUCTURES: There is a slightly comminuted, mildly displaced fracture of the right superior pubic ramus and there is a comminuted, moderately displaced fracture of the right inferior pubic ramus with adjacent soft tissue stranding. There is mild swelling of the right obturator internus muscle from edema and minimal hemorrhage. There is minimal edema/hemorrhage extending into the presacral region. No discrete, measurable hematoma within the pelvis. There is a nondisplaced fracture of the right transverse process of L5. The mild anterior compression deformity of T12 is likely chronic. No acute vertebral fractures are seen, and there is a Schmorl's node of the T12 superior endplate. At L4-L5, there is facet arthropathy and disc degeneration with 0.6 cm of grade 1 anterolisthesis of L4 on L5. Bones have normal alignment at each hip. IMPRESSION: 1. Fractures of right pubic rami with adjacent soft tissue swelling and minimal hemorrhage. However, there is no discrete, measurable hematoma. No evidence of a significant posttraumatic bleed. 2. Diverticulosis of sigmoid colon without diverticulitis.
[2016-10-23] MEDS ORDERED: SENNA-TIME S T1 EACH PO (11:14)
[2016-10-23] MEDS ORDERED: MIRALAX119 GM PO (11:14)
[2016-10-23] MEDS ORDERED: ULTRAM50 M1 PO (11:14)
--- NOTE | 2016-10-23 11:24 | Patient Discharge Instructions ---
Discharge Instructions General Discharge Information You were seen/treated for: -Fall with superior and inferior comminuted fracture of pelvic rand -Paroxysmal atrial fibrillation Special Instructions: -Please follow-up with your primary care physician tomorrow if possible. -Please follow up with cardiology for hypertension and A. fib control. 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 -You will be having short-term physical therapy at home after discharge. Acute Coronary Syndrome Inclusion Criteria At DC or during hospital stay patient has or had the following: ACS DIAGNOSIS No Discharge Core Measures Meds if any: Prescribed or Continued at Discharge Meds if any: NOT Prescribed or Continued at Discharge Congestive Heart Failure Inclusion Criteria At DC or during hospital stay patient has or had the following: CHF DIAGNOSIS No Discharge Core Measures Meds if any: Prescribed or Continued at Discharge Meds if any: NOT Prescribed or Continued at Discharge Cerebrovascular accident Inclusion Criteria At DC or during hospital stay patient has or had the following: CVA/TIA Diagnosis No Discharge Core Measures Meds if any: Prescribed or Continued at Discharge Meds if any: NOT Prescribed or Continued at Discharge Venous thromboembolism Inclusion Criteria VTE Diagnosis No VTE Type NONE VTE Confirmed by (Test) NONE Discharge Core Measures - Per Current guidelines, there needs to be overlap - treatment for the first 5 days of Warfarin therapy. - If discharged on Warfarin prior to 5 days of - overlap therapy, the patient will need to be - assessed for post discharge needs including - *Post discharge parental anticoagulation - *Warfarin and/or parental anticoagulation education - *Follow up date to check INR post discharge At least 5 days overlap therapy as Inpatient Yes Meds if any: Prescribed or Continued at Discharge Note: Overlap Therapy is Warfarin and Anticoagulant Meds if any: NOT Prescribed or Continued at Discharge
--- NOTE | 2016-10-23 14:20 | ECHOCARDIOGRAM REPORT ---
RAN CASSIDY Age: 80 : 1935 Gender: F Exam Date: 10/22/2016 18:23 Exam Location: [address] Ht (in): 65 Wt (lb): 165 BSA: 1.87 BP: 158 / 60 Ordering Physician: ANASTACIO STEWART MD Referring Physician: Ari Whiting MD, PhD Technologist: Arminda Ortiz [facility] Room Number: 179-02 Indications: AFIB/FLUTTER Rhythm: Sinus Technical Quality: Fair FINDINGS Left Ventricle Normal size left ventricle. Mild concentric left ventricular hypertrophy. No obvious regional wall motion abnormalities. Normal left ventricular ejection fraction visually estimated at >65%. Abnormal relaxation filling pattern of the left ventricle for age (stage 1 diastolic dysfunction). Right Ventricle Normal right ventricular size and function. Right Atrium Normal right atrial size. Left Atrium Normal left atrial size. Mitral Valve Moderate mitral annular calcification. Mitral valve mildly thickened. No mitral regurgitation. Aortic Valve Trileaflet aortic valve. Diffuse thickening of the aortic valve cusps with mildly reduced excursion. No hemodynamically significant aortic stenosis. No aortic regurgitation. Tricuspid Valve Structurally normal tricuspid valve. Mild tricuspid regurgitation. No evidence of pulmonary hypertension. Right ventricular systolic pressure estimated at 31mmHg. Pulmonic Valve Pulmonic valve not well visualized, grossly normal. Trace pulmonic regurgitation. Pericardium No pericardial effusion. Great Vessels Normal size aortic root. CONCLUSIONS Normal size left ventricle with mild concentric left ventricular hypertrophy, no obvious regional wall motion abnormalities, and normal systolic function with an estimated ejection fraction of greater than 65%. Abnormal relaxation filling pattern of the left ventricle for age (stage 1 diastolic dysfunction). Normal right ventricular size and function. Normal atrial size. Mild tricuspid regurgitation. No evidence of pulmonary hypertension. Trace pulmonic regurgitation. Alfred Porter M.D. (Electronically Signed) Final Date: 23 October 2016 14:19 MEASUREMENTS (Male / Female) Normal Values 2D ECHO LV Diastolic Diameter PLAX 4.2 cm 4.2 - 5.9 / 3.9 - 5.3 cm LV Systolic Diameter PLAX 2.1 cm 2.1 - 4.0 cm LV Fractional Shortening PLAX 50.0 % 25 - 46 % LV Ejection Fraction 2D Teich 81.7 % IVS Diastolic Thickness 1.2 cm LVPW Diastolic Thickness 1.1 cm LV Relative Wall Thickness 0.5 RV Internal Dim ED PLAX 2.4 cm 1.9 - 3.8 cm LVOT Diameter 2.0 cm Aortic Root Diameter 2.9 cm LA Systolic Diameter LX 3.3 cm 3.0 - 4.0 / 2.7 - 3.8 cm LA Volume 39.0 cm 18 - 58 / 22 - 52 cm Ascending Aorta Diameter 3.1 cm DOPPLER AV Peak Velocity 163.0 cm/s AV Peak Gradient 10.6 mmHg AV Mean Velocity 117.0 cm/s AV Mean Gradient 6.0 mmHg AV Velocity Time Integral 36.8 cm LVOT Peak Velocity 129.0 cm/s LVOT Peak Gradient 6.7 mmHg LVOT Mean Velocity 84.9 cm/s LVOT Mean Gradient 3.0 mmHg LVOT Velocity Time Integral 25.6 cm LVOT Stroke Volume 80.4 cm AV Area Cont Eq vti 2.2 cm AV Area Cont Eq pk 2.5 cm MV Peak Velocity 104.0 cm/s MV Peak Gradient 4.3 mmHg MV Mean Velocity 54.8 cm/s MV Mean Gradient 1.0 mmHg Mitral E Point Velocity 77.5 cm/s Mitral A Point Velocity 102.0 cm/s Mitral E to A Ratio 0.8 MV PHT Velocity 93.1 cm/s MV Deceleration Barton 323.0 cm/s MV Pressure Half Time 86.5 ms MV Area PHT 2.5 cm MV Deceleration Time 338.0 ms TR Peak Velocity 256.0 cm/s TR Peak Gradient 26.2 mmHg Right Atrial Pressure 5.0 mmHg Pulmonary Artery Systolic Pressu 31.2 mmHg Right Ventricular Systolic Press 31.2 mmHg PV Peak Velocity 78.6 cm/s PV Peak Gradient 2.5 mmHg PV Mean Velocity 49.6 cm/s PV Mean Gradient 1.0 mmHg PV Velocity Time Integral 16.8 cm LV E' Lateral Velocity 7.2 cm/s Mitral E to LV E' Lateral Ratio 10.7 LV E' Septal Velocity 7.4 cm/s Mitral E to LV E' Septal Ratio 10.5
[2016-10-23 14:29] VITALS: BP 126/50
[2016-10-23 15:30] VITALS: BP 118/78
--- NOTE | 2016-10-23 16:54 | Discharge Summary ---
Visit Information Visit Dates Admission Date: 10/21/16 Discharge Date: 10/23/16 Hospital Course Course Attending Physician: JACKSON CHAMORRO M.D Primary Care Physician: AIDA OROZCO,ARNIE Griffiths Hospital Course: Ms. mattson is 80 year old female with past medical history of hypertension, left tibia plate fracture status post internal fixation 4 years ago, right distal tibial fracture status post external fixation 17 years ago both incidents after falls while skiing, chronic back pain (spinal stenosis), overactive bladder on Oxybutynin. Patient was admitted on 10/21/16 after she fell down while skiing on her right side, patient hit her right hip against the floor, she immediately noticed severe pain over her right hip, patient went to home and started to have lightheadedness because of the severe pain but never lost consciousness. She denied any chest pain, palpitation, diaphoresis, nausea or vomiting, headache, diaphoresis, shortness of breath. When the patient came to the ED and after checking in, she started to feel palpitation and on EKG atrial fibrillation was recorded. Patient denied having any similar episode of palpitation before. Denied any recent history of flulike symptoms. Patient denied abdominal pain, nausea vomiting, change in the bowel habits, urinary symptoms, fever or chills. On admission Vital signs Temperature 98.1, pulse 81, respiration 18 with saturation 93% on room air, blood pressure 162/78 Labs WBC 19.1, H&H 14.1/42.7, platelet 234, sodium 138, potassium 3.8, chloride 101, bicarbonate 27, BUN 17, creatinine 0.8, troponin less than 0.01, LFT within normal, coagulation profile is within normal Right hip x-ray FINDINGS: There are moderately displaced, comminuted fractures of the right superior and inferior pubic rami. Otherwise, the pelvic bones are intact. Bones have normal alignment at the pubic symphysis, hips and sacroiliac joints. The articular cartilage space of each hip is maintained. No evidence of femoral fracture or acetabular injury. IMPRESSION: Acute, moderately displaced fractures of the right pubic rami. Patient was admitted to telemetry floor for the following problems Problem list #Moderate displaced comminuted fracture of right superior and inferior pubic rami #New onset of paroxysmal atrial fibrillation #Hypertension #Anemia #Moderate displaced comminuted fracture of right superior and inferior pubic rami -Orthopedic consultation was obtained, Dr. Alfred Daugherty MD, verbally he doesn' t think patient need any intervention -Pain is well controlled -Severe pain pathway, Tylanolo 50 mg every 6 when necessary, Percocet 1 tablet every 6 when necessary, morphine IV 2 mg every 4 when necessary -Aggressive bowel regimen -PT evaluation recommendation is home physical therapy #New onset of paroxysmal atrial fibrillation -Patient had been episode of A. fib when presented to the ED with heart rate 146 -Initial ED EKG: ATRIAL FIBRILLATION 146 [address]IFIC st-t WAVE CHANGES. -Repeat EKG: normal sinus rhythm ( 150 BPM, VARIABLE), atrial fibrillation -Converted to sinus rhythm with rate of 80s -Patient continue to be on sinus rhythm with heart rate 75-84 - [id number] score is 4 -Discontinue aspirin 81 mg daiy, given drop in hemoglobin -Start Sotolol at 80mg po BID (patient refused taking this medication and wants to get second opinion, patient was provided with information about sotalol and the market babb) -Patient is not a candidate for chronic anticoagulation per cardiology -Echocardiogram 10/23/16 Normal size left ventricle with mild concentric left ventricular hypertrophy, no obvious regional wall motion abnormalities, and normal systolic function with an estimated ejection fraction of greater than 65%. Abnormal relaxation filling pattern of the left ventricle for age (stage 1 diastolic dysfunction). Normal right ventricular size and function. Normal atrial size. Mild tricuspid regurgitation. No evidence of pulmonary hypertension. Trace pulmonic regurgitation. #Hypertension -Continue lisinopril 10 mg daily #Anemia -A drop in H&H was noted yesterday, H&H dropped farther today -H&H 10.8<10.5/30.9<11.3/33.3 < 14.1/42.7 -CT pelvis and abdomen was negative for any hematoma 10/23/16 IMPRESSION: 1. Fractures of right pubic rami with adjacent soft tissue swelling and minimal hemorrhage. However, there is no discrete, measurable hematoma. No evidence of a significant posttraumatic bleed. 2. Diverticulosis of sigmoid colon without diverticulitis. -Patient has bruise over the right hip 6 x 8 cm, no other bruises were noticed -Guiac stool, patient still doesn't have any bowel movement -Orthostatic measurements blood pressure lying 126/50, pulse 80 Blood pressure sitting 140/70, pulse 83 Blood pressure standing 148/70, pulse 88 Orthostatic measurement is negative #Euthyroid sick syndrome -TSH elevated 5.6, free T4 1.16 within normal, patient was instructed to follow up with primary care physician Dr. Chamorro contacted the patient's primary care physician and clarified the hemoglobin baseline which was 13, repeated hemoglobin on day of discharge around 4 PM is 10.8, Ms. mattson will be discharged and was instructed to follow up with primary care physician tomorrow, she mentioned that she spoke with the primary care physician and she has an ppointment on Wednesday 10/25, and appointment with cardiology on 10/30. DVT prophylaxis discontinue Lovenoxm, even drop in hemoglobin. Alps Diet regular Code full Consultation cardiology, orthopedic surgery Allergies: Coded Allergies: No Known Allergies (10/21/16) Disposition Summary Disposition Principal Diagnosis: Moderate displaced comminuted fracture of right superior and inferior pubic rami Additional Diagnosis: New onset of paroxysmal atrial fibrillation Discharge Disposition: home or self care Discharge Instructions General Discharge Information Code Status: Full Code Patient's Diet: Heart healthy Patient's Activity: As tolerated Follow-Up Instructions/Appts: -Please follow-up with your primary care physician tomorrow if possible. -Please follow up with cardiology for hypertension and A. fib control. 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 -You will be having short-term physical therapy at home after discharge. Medications at Discharge Discharge Medications: Continue taking these medications: Lisinopril (Lisinopril) 10 MG TABLET 1 Tablet ORAL TWICE DAILY Qty = 180 Comments: GIVEN 10/23/16 @ 1015 Oxybutynin Chloride (Oxybutynin Chloride) 5 MG TABLET 1 Tablet ORAL TWICE DAILY Qty = 180 Comments: GIVEN 10/23/16 @ 1015 Lorazepam (Lorazepam) 0.5 MG TABLET 1 Tablet ORAL Every night as needed for INSOMNIA Qty = 30 Comments: NOT GIVEN Start taking the following new medications: Polyethylene Glycol 3350 (Miralax) 17 GRAM/DOSE POWDER 17 Gram ORAL DAILY Qty = 20 No Refills Comments: GIVEN 10/23/16 @ 1020 Sennosides/Docusate Sodium (Senna-Time S Tablet) 8.6 MG-50 MG TABLET 187 Milligram ORAL AT BEDTIME Qty = 20 No Refills Comments: GIVEN 10/22/16 @ 9:20 PM Tramadol HCl (Ultram) 50 MG TABLET 1 Tablet ORAL THREE TIMES A DAY NEEDED Qty = 5 No Refills Comments: NOT GIVEN Copies To: AIDA OROZCO,ARNIE BAILEY MD PhD,THANG Carrillo
[2016-10-23 17:04] LABS: ABSOLUTE BASOPHIL COUNT 0 /CUMM (0.0-0.2); ABSOLUTE EOSINOPHIL COUNT 0.2 /CUMM (0.0-0.7); ABSOLUTE LYMPH COUNT 1.4 /CUMM (1.2-3.4); ABSOLUTE MONOCYTE COUNT 0.7 /CUMM (0.10-0.60); BASOPHIL % 0.4 % (0.0-2.0); EOSINOPHIL % 2.7 % (0-5); GRANULOCYTE % 67.8 % (42.2-75.2); HEMATOCRIT 32.2 % (37-47); MEAN CORPUSCULAR HGB 30.4 PG (27.0-31.0); MEAN CORPUSCULAR HGB CONC 33.6 G/DL (33.0-37.0); MEAN CORPUSCULAR VOLUME 90.4 FL (81.0-99.0); MEAN PLATELET VOLUME 9.4 FL (7.4-10.4); PLATELET COUNT 181 /CUMM (130-400); RBC DISTRIBUTION WIDTH 14.6 % (11.5-14.5); RED BLOOD CELL CT 3.57 /CUMM (4.20-5.40); WHITE BLOOD CELL COUNT 7.4 /CUMM (4.8-10.8)
--- NOTE | 2016-10-27 19:04 | Cons- Orthopedic ---
General Information and HPI Consulting Request Date of Consult: 10/23/16 Requested By: JACKSON MORRIS M.D Reason for Consult: Right superior and inferior pubic ramus fractures. Source of Information: patient, old records (EMR), [facility] EHR Records (Emergency Department, Admitting Medicine Service and Radiology Department EHR records and reports for current [facility] admission) Exam Limitations: physical impairment (Pt bedridden d/t ramus fx pain), Fracture (patient motor and range of motion examination limited due to pain of pubic ramus fracture consistent with the injury, however the fracture pattern is stable and therefore the fracture itself should not be a significant limitation to evaluation going forward once the pain is better controlled with medication and/or decreases with healing) the fracture itself should not be a significant , Pain (Severe right inguinal region pain even with intermediate arc log-roll rotation motion limited overall evaluation of the hip, gluteal, inguinal and pelvis regions. Pain precluded patient mobilization for this initial evaluation. Detailed musculoskeletal and functional testing of the lower extremities was otherwise normal and not significantly limited.) History of Present Illness: Patient seen by Mirella Daugherty M.D. in consultation on 10/23/2016 @ ~11:30 AM: Neelima Estrella is an 80 year old white female who was admitted to the hospital through the emergency department on Friday evening with debilitating right ischial, inguinal and hip region pain following an unprotected, intermediate energy fall primarily impacting her buttock when she fell skiing earlier on the day of admission. She denies any other area of impact, injury or symptomatology. She was unable to get up or weight-bear and had to be evacuated from the slope by Cafe Manager cassia. She was assisted into her friends car and brought home where she continued to have severe pain and difficulty mobilizing so shortly thereafter she was brought by car to the [facility] Emergency Department where radiology reading of AP pelvis and AP/Lateral right hip radiographs showed a normal right hip but comminuted, moderately displaced and segmental superior and inferior pubic rami fractures. The patient had difficulty progressing with mobilization despite the stable nature of her fracture. Because of her persistent severe pain and report of relative post- traumatic anemia (which, in retrospect was likely dilutional) an abdomen and pelvis CT scan without contrast was performed to rule out other associated fractures and/or hematoma. The radiology reading of this study confirmed the right-sided rami fractures seen on the pelvis and hip radiographs without evidence of other pelvic rim fractures or injuries and without significant denia- pelvic hematoma. The reading also noted a right L5 transverse process fracture with no other spinal or other musculoskeletal injuries and no perispinal hematoma appreciated. The orthopaedic service was consulted to make recommendations regarding pain control, mobilization and post-discharge management and follow-up. During the patients initial evaluation in the emergency department she was noted to be quite tachycardic and even after her heart rate and mild symptoms (heart racing) normalized she was noted to have some irregularity of rhythm. She was evidently recently noted to have a new onset cardiac murmur by her primary care physician but has been asymptomatic until now. She was assessed as having new onset atrial fibrillation and was started on Lovenox presumably for post-traumatic immobilization DVT prophylaxis as well as for her new onset arrhythmia. The patients past medical history is unremarkable except for hypertension. She has a remote history of left tibial plateau fracture (2012) right tibia and fibula fracture (17 years ago) requiring ORIF with both of these injuries related to skiing. She also reports history of lumbar spinal stenosis but this has not been symptomatically or functionally limiting. No other past medical or surgical history was reported. Her history was generally unremarkable as it relates to her orthopaedic injury. Her medications include Lisinopril for hypertension and Oxybutynin for overactive bladder. She was on Fosamax or osteoporosis but now uses only Calcium and Vitamin D supplementation. She denies history of anaphylactic, anaphylactoid or non-anaphylactic allergies, severe reactions or sensitivities. She is normally fully and independently functional, ambulatory and even able to participate in vigorous activities such as skiing on a regular basis without limitation. Her pain is severely limiting mobilization but seems to be improving on standard fracture pain medication regimen. Allergies/Medications Allergies: Coded Allergies: No Known Allergies (10/21/16) Home Med List: Lisinopril 10 MG TABLET 1 TAB PO BID B/P (Reported) Lorazepam 0.5 MG TABLET 1 TAB PO QPM PRN INSOMNIA (Reported) Oxybutynin Chloride 5 MG TABLET 1 TAB PO BID BLADDER (Reported) Polyethylene Glycol 3350 (Miralax) 17 GRAM/DOSE POWDER 17 GM PO DAILY CONSTIPATION Sennosides/Docusate Sodium (Senna-Time S Tablet) 8.6 MG-50 MG TABLET 187 MG PO AT BEDTIME CONSTIPATION Tramadol HCl (Ultram) 50 MG TABLET 1 TAB PO TIDPRN PAIN CONTROL Past History Medical History Blood Transfusion Hx: No Neurological: NONE EENT: NONE Cardiovascular: hypertension Respiratory: NONE Gastrointestinal: NONE Hepatic: NONE Renal: NONE Musculoskeletal: spinal stenosis Psychiatric: NONE Endocrine: NONE Blood Disorders: NONE Cancer(s): 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 Refer elsewhere in this and other documents for additional details. There is no other information in these categories that I am aware of and no additional information was provided by the patient on consultation evaluation today which is directly pertinent to the patient's musculoskeletal assessment, orthopaedic consultation evaluation, recommendations and management. Surgical History Pertinent Surgical History: LEFT TIB-FIB FRACTURE WITH orif catarct Psychosocial History Where Do You Live? Home Who Do You Live With? self Primary Language: British Smoking Status: Never Smoked ETOH Use: occasional use Illicit Drug Use: denies illicit drug use Functional Ability Ambulation: The patient was previously unrestricted with activity and ambulation. In fact she regularly participated in vigorous activities including tennis and skiing without the need for ambulatory aide and without history of frequent falls, balance issues or risk for falls prior to this injury. Review of Systems Review of Systems: No additional information was obtained during this consultation evaluation compared to the comprehensive review of systems documented in the primary admission history and physical evaluation. Refer to that document for details. Exam & Diagnostic Data Vital Signs and I&O No vital sign changes or instabilities were reported or noted during the consultation assessment. Physical Exam: Physical examination specific to the area of injury, symptomatology and radiologic findings showed moderate inguinal pain to palpation with early ecchymosis in the proximal medial thigh but only limited swelling and no other tenderness in the contralateral inguinal region, pelvic ring, gluteal, sacral or lower lumbar areas. Her pain with right hip short arc log-roll, flexion and even flexed internal and external rotation was mild and well tolerated, however intermediate arc motions elicited pain and so were immediately discontinued ( followed by rapid resolution of motion-related pain). The patient states that even this sis improving. A comprehensive global trauma assessment of the head, neck, torso, and extremities was also performed and showed no other areas of symptoms or findings to suggest additional injuries or deficits except as noted above. She was awake and alert during the evaluation with normal communication, following of commands and cooperation with the evaluation. She was oriented to person, place, time and situation without any significant disorientation, confusion or sedation. She has a normocephalic and atraumatic skull and scalp with pupils equal round and reactive to light, no light sensitivity and no evidence of visual disturbance on gross testing. Her ears, nose and throat are clear to superficial examination with no hearing, breathing or vocalization abnormality noted. Her neck is supple and nontender with normal and non-painful motion without evidence of radiating or associated neurological symptoms or findings. Cervical, thoracic and lumbar spinal regions are nontender with no evidence of deformity (even in the lumbar region where she was noted to have a nondisplaced right transverse process fracture on CT scan). Shoulders, clavicles and osseous thoracic region are nontender to palpation. Abdomen, flank regions and costovertebral angles are nontender with no evidence of masses or organomegaly. Pelvis is nontender to palpation except as described above in the inguinal and ischial regions. There was no pain with distractive stress application to the bilateral iliac wings to suggest an occult pelvic ring disruption. Buttock and lateral hip regions are nontender bilaterally. All extremities are musculoskeletally normal with no osseous, articular or muscular tenderness and no limitation or abnormality of motion in any joint except moderate limitation in the right hip consistent with the history and radiologic findings. There is no posterior calf tenderness or Homans sign. The bilateral upper and lower extremities are distally neurovascularly intact with normal function. There are no other regions of involvement or signs of trauma, bodily injury, symptoms or physiologic deficit except as noted above. Last 24 Hours of Labs: Initial laboratory studies showed no significant abnormalities. Her relative anemia is more likely dilutional than significantly or directly related to her traumatic event. Serial evaluation is warranted as recommended by the primary admitting medical service. Imaging Results: - Right Hip AP/LAT Views (Right Hip 2 View Radiographic Series) - [facility] Emergency Department Radiology - AP Pelvis (Pelvis 1 View Radiographic Series) - [facility] Emergency Department Radiology Abdomen/Pelvis CT Scan Without Contrast - [facility] Radiology Summary Consultation Reading For All Of The Above Studies: On specialty orthopaedic consultation evaluation and review of the patients radiologic studies, I would agree with the radiology department readings with only a few additional details noted below and no significant change to the overall clinical or treatment implications of the reading. The pelvis and right hip radiographs show right segmental and comminuted inferior and superior medial rami fractures with parasymphyseal osseous column but not symphyseal intraarticular extension. Neither the radiographs nor the CT scan suggest any other pelvic ring trauma or instability. The oblique, linear right L5 transverse process fracture noted on CT scan is nondisplaced and, although it probably contributes to pain and may limit mobilization, is unlikely to change treatment. Bracing may be indicated if back pain limits mobilization or functional recovery for more than a few days or requires narcotic pain medication out of proportion to her injuries. There is no evidence of peripelvic or perispinal hematoma, significant soft tissue swelling or other abnormality. Her anemia is likely dilutional but should be observed and followed particularly if associated with symptoms. Assessment/Plan Assessment/Plan Neelima Estrella is an 80 year old white female who sustained right segmental and comminuted inferior and superior medial rami fractures with parasymphyseal osseous column but not symphyseal intraarticular extension as well as a nondisplaced right transverse process fracture from a skiing injury on 2016. She was found to have new onset atrial fibrillation possibly related to the stress of injury and this has stabilized during admission. She was initially having difficulty mobilizing due to pain but seems to be improving now and is progressing with PT. Her serial laboratory studies have shown her H/H to be trending downward but there is no evidence for peripelvic or perispinal hematoma or other potential bleeding source at present and this relative anemia likely represents dilutional effect with supportive IV fluid administration. She may be weight-bearing as tolerated. Walker ambulatory assistance is recommended but she may be able to wean rapidly to a cane depending on symptom and functional progression. No specific treatment is required for any of her fractures. Pain medication management will be deferred to her primary admitting medical team and standard fracture intermediate dose regimen should be sufficient. As long as she is able to mobilize, there is no orthopaedic indication for DVT prophylaxis that I am aware of in the literature. Determination of her discharge status (home versus rehabilitation program) will be deferred to her primary admitting medical team but will likely best be assessed using standard discharge planning criteria. She may be a candidate for home discharge and outpatient care unless she is unable to progress with mobilization, basic self-care activities and the initial phase of rehabilitative physical therapy in which case inpatient rehabilitation program may be best ( particularly is she does not have much support at home). Unless severe pain or functional limitation continue for several weeks there is no definitive need for follow-up orthopaedic consultation evaluation although I would be pleased to see her in 6 weeks to obtain radiographs (AP pelvis and AP/LAT lumbar spine studies) if she would prefer and we can see her sooner if recovery is not progressing as expected. Given that no immediate or ongoing orthopedic care is required, the orthopedic consultation service will sign off at this time but will remain available for reconsultation at any time should it be helpful. Please not hesitate to contact Dr. Daugherty for any questions regarding the inpatient or follow-up orthopedic care of this patient. Thank you for consulting Dr. Daugherty and [facility] regarding Ms. De Guzman orthopaedic management. Problem List: 1. Closed fracture of right inferior pubic ramus 2. Closed fracture of right superior pubic ramus 3. Closed fracture of transverse process of lumbar vertebra Other Findings/Comments: Physical Therapy for weight-bearing as tolerated walker mobilization to chair and progress sequentially with independent, unrestricted ambulation to bathroom, in hallways and on stairs. Copies To: VIOLET OROZCO,MIRELLA Storey Consult Acknowledgment - Thank you for your consult request. Attending MD Review Statement Attending Statement Attending MD Statement: examined this patient, discuss w/resident/PA/CERTIFIED PEER SPECIALIST, agreed w/resident/PA/CERTIFIED PEER SPECIALIST, reviewed EMR data (avail), reviewed images Attending Assessment/Plan: See above Assessment/Plan Section (completed by consulting orthopaedic surgery attending, Mirella Daugherty M.D.).
== END 2016-10-23 18:10 | disposition home health service (06) | DRG 536 ==
LOC: ENRESERVDT → ENRESERVTM → ERH 14:07 → ENPENDDIS 16:58 → 1NO 16:58 → ERHI 16:58 → 1NO 19:56
PROVIDERS: Physician Assistant Surgical; Student in an Organized Health Care Education/Training Program; ADMIT Internal Medicine
DX: S32.511A Fracture of superior rim of right pubis, initial encounter for closed fracture (principal); I48.0 Paroxysmal atrial fibrillation; S32.591A Other specified fracture of right pubis, initial encounter for closed fracture; W00.0XXA Fall on same level due to ice and snow, initial encounter; Y93.23 Activity, snow (alpine) (downhill) skiing, snowboarding, sledding, tobogganing and snow tubing; Y92.838 Other recreation area as the place of occurrence of the external cause; Z79.01 Long term (current) use of anticoagulants; I10 Essential (primary) hypertension
CPT/HCPCS: 1NSP; 36415; 73502-RT; 74176; 82436; 93005; 93010; 93306; 96374; 97110-GO; 97116-GO; 97161-GP; 97165-GO; 97530-GO; J1650; J3490

== ENCOUNTER 2016-11-10 21:43 | Emergency (ER) | payer OTHER ==
[~2016-11-10] VITALS: Ht 165.1 cm; Wt 73.9 kg
[~2016-11-10 21:43] MED LIST: LISINOPRIL10 M1 PO; LORAZEPAM0.5 M1 PO; MIRALAX119 GM PO; OXYBUTYNIN CHLOR5 M2 PO; SENNA-TIME S T1 EACH PO; ULTRAM50 M1 PO; VICODIN 5-3001 EACH PO
--- NOTE | 2016-11-10 21:47 | ED CARDIAC/CP/PALPITATIONS ---
History of Present Illness General Chief Complaint: Palpitations Stated Complaint: BIBA FOR PALPITATIONS Source: patient, EMS Exam Limitations: no limitations Vital Signs & Intake/Output Vital Signs & Intake/Output Vital Signs Date Time Temp Pulse Resp B/P Pulse O2 O2 Flow FiO2 Ox Delivery Rate 11/10 2221 99 11/10 2152 97.5 101 18 158/82 99 Room Air Allergies Coded Allergies: No Known Allergies (10/21/16) Reconcile Medications Ciprofloxacin HCl (Cipro) 500 MG TABLET 1 TAB PO BID URINARY TRACT INFECTION Lisinopril 10 MG TABLET 1 TAB PO BID B/P (Reported) Lorazepam 0.5 MG TABLET 1 TAB PO QPM PRN INSOMNIA (Reported) Oxycodone HCl (Unknown Strength) CAPSULE (Unknown Dose) PO QIDPRN PRN PRN ( Reported) Polyethylene Glycol 3350 (Miralax) 17 GRAM/DOSE POWDER 17 GM PO DAILY CONSTIPATION Sennosides/Docusate Sodium (Senna-Time S Tablet) 8.6 MG-50 MG TABLET 187 MG PO AT BEDTIME CONSTIPATION Tramadol HCl (Ultram) 50 MG TABLET 1 TAB PO TIDPRN PAIN CONTROL Triage Nurses Notes Reviewed? yes Onset: Gradual Duration: hour(s): Timing: single episode today Location: central Radiation: no radiation Activities at Onset: none Prior Chest Pain/Card Workup: h/o paroxysmal afib after a pelvic fracture Associated Symptoms: palpitations. HPI: 81 yo woman presents with palpitations. She notes that she was reading a book tonight and felt suddenly her heart rate increase to the 120's. She notes also, "it feels like I have a urinary tract infection." She took one cipro "that I had lying around." She notes no chest pain, shortness of breath, chills, fever, abdominal pain. She is otherwise well. Past History Travel History Traveled to [place] past 21 day No Medical History Any Pertinent Medical History? 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 No Review of Systems Review of Systems Constitutional: Reports: no symptoms. EENTM: Reports: no symptoms. Respiratory: Reports: no symptoms. Cardiovascular: Reports: no symptoms. GI: Reports: no symptoms. Genitourinary: Reports: no symptoms. Musculoskeletal: Reports: no symptoms. Skin: Reports: no symptoms. Neurological/Psychological: Reports: no symptoms. Hematologic/Endocrine: Reports: no symptoms. Immunologic/Allergic: Reports: no symptoms. All Other Systems: Reviewed and Negative Physical Exam Physical Exam General Appearance: well developed/nourished, mild distress Head: atraumatic Eyes: Bilateral: normal appearance. Ears, Nose, Throat: normal pharynx, normal ENT inspection Neck: normal inspection, supple, full range of motion Respiratory: normal breath sounds Cardiovascular: regular rate/rhythm Gastrointestinal: normal bowel sounds, soft, non-tender Back: normal inspection, normal range of motion Extremities: normal inspection, normal capillary refill, normal range of motion Neurologic/Psych: no motor/sensory deficits, awake, alert, oriented x 3 Skin: intact, normal color Core Measures ACS in differential dx? No Severe Sepsis Present: No Septic Shock Present: No Progress Differential Diagnosis: afib vs svt vs palpitations vs other. Plan of Care: Orders Procedure Date/time Status Add-on Test (ER Only) 11/10 2324 Active CULTURE,URINE 11/10 2146 Active URINALYSIS 11/10 2146 Complete TROPONIN LEVEL 11/10 2146 Complete PARTIAL THROMBOPLASTIN TIME 11/10 2146 Complete PROTHROMBIN TIME 11/10 2146 Complete COMPREHENSIVE METABOLIC PANEL 11/10 2146 Complete CBC WITHOUT DIFFERENTIAL 11/10 2146 Complete EKG 11/10 2143 Active Laboratory Tests 11/10/16 2203: Anion Gap 9, Estimated GFR > 60, BUN/Creatinine Ratio 27.1 H, Glucose 111 H, Calcium 9.7, Total Bilirubin 0.8, AST 25, ALT 27, Alkaline Phosphatase 157 H, Troponin I < 0.01, Total Protein 7.1, Albumin 4.2, Globulin 2.9, Albumin/ Globulin Ratio 1.4, PT 11.1, INR 1.06, APTT 31, CBC w Diff NO MAN DIFF REQ, RBC 4.26, MCV 90.0, MCH 30.0, RDW 14.2, MPV 7.9, Gran % 71.8, Lymphocytes % 17.8 L, Monocytes % 7.9, Eosinophils % 2.1, Basophils % 0.4, Absolute Granulocytes 5.9, Absolute Lymphocytes 1.5, Absolute Monocytes 0.7 H, Absolute Eosinophils 0.2, Absolute Basophils 0, PUBS MCHC 33.3 11/10/162134: Urine Color YEL, Urine Clarity CLEAR, Urine pH 6.5, Ur Specific [place] <= 1.005 , Urine Protein NEG, Urine Ketones NEG, Urine Nitrite NEG, Urine Bilirubin NEG, Urine Urobilinogen 0.2, Ur Leukocyte Esterase MOD H, Ur Microscopic SEDIMENT EXAMINED, Urine RBC RARE, Urine WBC > 75 H, Ur Epithelial Cells MOD H, Urine Hemoglobin TRACE-INTACT, Urine Glucose NEG Microbiology 11/10 2134 URINE ROUT: Urine Culture - RECD Diagnostic Imaging: Viewed by Me: Radiology Read. Discussed w/RAD: Radiology Read. CXR Impression: no infiltrates, normal size heart, normal mediastinum, notable for right paratracheal stripe c/w goiter Pre-Hospital EKG: AFIB Initial ED EKG: sinus tach, no acute changes. Comments: PATIENT: RAN CASSIDY PRESENT AGE: 81 PATIENT ACCOUNT NO: [id number] : 35 LOCATION: [facility] ORDERING PHYSICIAN: KINGSTON BARAKAT MD SERVICE DATE: 11/10/16 EXAM TYPE: RAD - XRY-PORTABLE CHEST XRAY EXAMINATION: XR PORTABLE CHEST CLINICAL INFORMATION: Palpitations. COMPARISON: None. TECHNIQUE: Portable AP view of the chest was obtained. FINDINGS: The heart, great vessels and pulmonary vasculature are unremarkable. There is atherosclerotic change of the aortic knob. There is a mild widening of the right paratracheal stripe, likely secondary to a goiter. No focal infiltrate, effusion or pneumothorax is seen. There is no acute osseous abnormality. IMPRESSION: 1. No active cardiopulmonary disease. 2. There is mild widening of the right paratracheal stripe, likely secondary to a thyroid goiter. Recommend comparison with outside prior chest radiographs to ensure stability. If of clinical concern the absence of outside radiographs demonstrating stability, this can be further evaluated with a CT examination of the thorax. DICTATED BY: SETH HOLLOWAY MD DATE/TIME DICTATED:11/10/162238 EDUCATION COUNSELOR:ALEX DATE/TIME TRANSCRIBED:11/10/162238 CONFIDENTIAL, DO NOT COPY WITHOUT APPROPRIATE AUTHORIZATION. <Electronically signed in Other Vendor System> SIGNED BY: SETH HOLLOWAY MD 11/10/162243 Departure Departure Disposition: HOME OR SELF CARE Condition: Stable Clinical Impression Primary Impression: Palpitations Secondary Impressions: Paroxysmal atrial fibrillation, UTI (urinary tract infection) Referrals: AIDA OROZCO,ARNIE Griffiths (PCP/Family) Departure Forms: Customer Survey General Discharge Information Prescriptions: Current Visit Scripts Ciprofloxacin HCl (Cipro) 1 TAB PO BID #14 TAB Comments 11/10/16, 23:35pm... pt feeling well in the ED...she is in normal sinus rhythm... She had no chest pain throughout this episode. She does have signs and symptoms consistent with a UTI. She declines admission when I offered. She declines blood thinners/rate controlling agents. She has follow up with Dr. Cordero tomorrow afternoon. Ceftriaxone given in ED. She will complete a course of cipro. Close follow up advised. Critical Care Note Critical Care Note Critical Care Time: non-applicable
[2016-11-10] MEDS ORDERED: OXYCODONE HCL5 M2 PO (22:10)
[2016-11-10 22:11] LABS: ABSOLUTE BASOPHIL COUNT 0 /CUMM (0.0-0.2); ABSOLUTE EOSINOPHIL COUNT 0.2 /CUMM (0.0-0.7); ABSOLUTE GRANULOCYTE CT 5.9 /CUMM (1.4-6.5); ABSOLUTE LYMPH COUNT 1.5 /CUMM (1.2-3.4); ABSOLUTE MONOCYTE COUNT 0.7 /CUMM (0.10-0.60); BASOPHIL % 0.4 % (0.0-2.0); EOSINOPHIL % 2.1 % (0-5); GRANULOCYTE % 71.8 % (42.2-75.2); HEMATOCRIT 38.3 % (37-47); MEAN CORPUSCULAR HGB CONC 33.3 G/DL (33.0-37.0); MEAN PLATELET VOLUME 7.9 FL (7.4-10.4); PLATELET COUNT 350 /CUMM (130-400); RBC DISTRIBUTION WIDTH 14.2 % (11.5-14.5); RED BLOOD CELL CT 4.26 /CUMM (4.20-5.40); WHITE BLOOD CELL COUNT 8.3 /CUMM (4.8-10.8)
[2016-11-10 22:20] LABS: PT 11.1 SEC (9.4-12.5); PTT 31 SEC (25-37)
--- NOTE | 2016-11-10 22:44 | RADIOLOGY REPORT ---
EXAMINATION: XR PORTABLE CHEST CLINICAL INFORMATION: Palpitations. COMPARISON: None. TECHNIQUE: Portable AP view of the chest was obtained. FINDINGS: The heart, great vessels and pulmonary vasculature are unremarkable. There is atherosclerotic change of the aortic knob. There is a mild widening of the right paratracheal stripe, likely secondary to a goiter. No focal infiltrate, effusion or pneumothorax is seen. There is no acute osseous abnormality. IMPRESSION: 1. No active cardiopulmonary disease. 2. There is mild widening of the right paratracheal stripe, likely secondary to a thyroid goiter. Recommend comparison with outside prior chest radiographs to ensure stability. If of clinical concern the absence of outside radiographs demonstrating stability, this can be further evaluated with a CT examination of the thorax.
[2016-11-10] MEDS ORDERED: CIPRO500 M1 PO (23:27)
[2016-11-11 00:08] VITALS: BP 170/80
== END 2016-11-11 00:11 ==
LOC: ERH 21:43
PROVIDERS: Pediatrics
DX: I48.0 Paroxysmal atrial fibrillation (principal); N39.0 Urinary tract infection, site not specified
CPT/HCPCS: 81001; 87086; 93005; 93010; 96374; J0696